=== PATIENT | female | born 2000 | race Caucasian/White ===

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

== ENCOUNTER 2020-02-18 13:07 | Emergency (ER) | payer OTHER ==
[~2020-02-18] VITALS: Ht 157.5 cm; Wt 73.3 kg
[~2020-02-18 13:07] MED LIST changes: +COLA100C5 PO; +DIBU1OIN TOP; +IBUP-1114 PO; +MAPA500T2 PO; +PRENTAB9 PO
[2020-02-18 13:08] VITALS: BP 112/75
[2020-02-18] MEDS ORDERED: ONDANSETRON 4 MG ORAL DISINTEGRATING TAB (Q0162 PER 1MG) PO ONE (13:30)
[2020-02-18] MEDS ORDERED: ONDA4TAB6 PO (14:11)
[2020-02-19] MEDS ORDERED: PROT1TAB2 PO (05:54)
[2020-02-19] MEDS ORDERED: REGL10TA6 PO (05:54)
== END 2020-02-18 14:18 | disposition home or self-care (01) ==
LOC: M ED 13:07
DX: R11.2 Nausea with vomiting, unspecified (principal); Z79.899 Other long term (current) drug therapy
CPT/HCPCS: 99282; Q0162

== ENCOUNTER 2020-02-19 02:18 | Emergency (ER) | payer OTHER ==
[~2020-02-19] VITALS: Ht 157.5 cm; Wt 72.7 kg
[~2020-02-19 02:18] MED LIST changes: +ONDA4TAB6 PO
[2020-02-19] MEDS ORDERED: GI COCKTAIL 50ML BTL(HYOSCYAMINE/MAALOX/LIDOCAINE VISCOUS)(1:3:1) As Ordered ONE (02:34)
[2020-02-19] MEDS ORDERED: GI COCKTAIL 50ML BTL(HYOSCYAMINE/MAALOX/LIDOCAINE VISCOUS)(1:3:1) PO ONE (02:45)
[2020-02-19] MEDS ORDERED: METOCLOPRAMIDE INJ 10MG/2ML VIAL (J2765) IV ONE (04:00)
[2020-02-19] MEDS ORDERED: NS 1,000 ML IV ONE (04:00)
[2020-02-19] MEDS ORDERED: KETOROLAC 30 MG/ML VIAL (J1885) IV ONE (04:00)
[2020-02-19 04:02] LABS: BASO % 0.2 % (0.0-1.0); EOS % 0.2 % (0.0-3.0); LYMPH # 0.5 10^3/uL (1.5-5.0); LYMPH % 9.3 % (24.0-44.0); MEAN CORPUSCULAR HEMOGLOBIN 27.3 pg (27.0-33.0); MEAN CORPUSCULAR HGB CONC 31.9 g/dl (32.0-36.5); MEAN CORPUSCULAR VOLUME 85.5 fl (80.0-96.0); MONO # 0.4 10^3/uL (0.0-0.8); MONO % 6.1 % (0.0-5.0); NEUTROPHILS # 4.8 10^3/uL (1.5-8.5); PLATELET COUNT, AUTOMATED 330 10^3/uL (150-450); WHITE BLOOD COUNT 5.7 10^3/uL (4.0-10.0)
[2020-02-19 04:31] LABS: ALBUMIN 3.9 GM/DL (3.2-5.2); BILIRUBIN,DIRECT 0.2 MG/DL (0.0-0.2); BILIRUBIN,TOTAL 0.9 MG/DL (0.2-1.0); TOTAL PROTEIN 7.8 GM/DL (6.4-8.2)
[2020-02-19] MEDS ORDERED: REGL10TA6 PO (05:54)
[2020-02-19] MEDS ORDERED: PROT1TAB2 PO (05:54)
[2020-02-19 06:06] VITALS: BP 118/70
== END 2020-02-19 06:08 | disposition home or self-care (01) ==
LOC: M ED 02:18
DX: R10.13 Epigastric pain (principal)
CPT/HCPCS: 80047; 80076; 83690; 84702; 85025; 96361; 96374; 96375; 99284; J1885; J2765

== ENCOUNTER 2020-10-15 17:19 | Emergency (ER) | payer OTHER ==
[~2020-10-15] VITALS: Ht 154.9 cm; Wt 77.8 kg
[~2020-10-15 17:19] MED LIST changes: +PROT1TAB2 PO; +REGL10TA6 PO
[2020-10-15] MEDS ORDERED: IBUP-1114 PO (17:39)
[2020-10-15] MEDS ORDERED: ONDANSETRON 4 MG ORAL DISINTEGRATING TAB PO ONE (18:30)
[2020-10-15] MEDS ORDERED: NORCO 5/325MG TABLET (BULK FOR ED) PO ONE (18:45)
[2020-10-15] MEDS ORDERED: CEPHALEXIN 500 MG CAP PO ONE (18:45)
[2020-10-15] MEDS ORDERED: KEFL500C17 PO (18:47)
[2020-10-15 19:11] VITALS: BP 127/76
== END 2020-10-15 19:13 | disposition home or self-care (01) ==
LOC: M ED 17:19
DX: S61.203A Unspecified open wound of left middle finger without damage to nail, initial encounter (principal); X58.XXXA Exposure to other specified factors, initial encounter; Y92.89 Other specified places as the place of occurrence of the external cause; Y99.1 Military activity
CPT/HCPCS: 99283; Q0162